=== PATIENT | male | born 1960 ===

== ENCOUNTER 2025-08-13 11:50 | Emergency (ER) | payer OTHER, SELFPAY ==
--- NOTE | ~2025-08-13 | XR_ITS ---
EXAMINATION: XR CHEST CLINICAL INFORMATION: htn, cp COMPARISON: None available. TECHNIQUE: Frontal view of the chest was obtained. FINDINGS: The lungs are hypoexpanded but clear acute process. The heart size and pulmonary vascularity is normal. No gross bony abnormality seen. There are rods within the cervical spine for lower cervical spine fusion. There is bilateral laminectomy in the area of fusion. XR/XR chest 1V IMPRESSION: No acute cardiopulmonary process seen. Electronically signed by: Chance Keller MD 08/13/2025 01:29 PM EDT
--- NOTE | ~2025-08-13 | CT_ITS ---
EXAMINATION: CT HEAD WITHOUT IV CONTRAST HISTORY: htn, headache. TECHNIQUE: Unenhanced helical CT of the head was performed per standard departmental protocol. Coronal and sagittal reformats of the head were also evaluated. One or more of the following techniques was used for dose reduction: Automated exposure control, adjustment of the mA and/or kV according to patient size, use of iterative reconstruction technique. DLP: 740 mGy-cm COMPARISON: There are no prior studies available for comparison. FINDINGS: BRAIN: The brain parenchyma is unremarkable. There is normal martinez/white differentiation. The ventricular system is normal in size and configuration. There is no mass effect or midline shift. No intra- or extra-axial fluid collections are identified. SINUSES: The visualized paranasal sinuses are clear. Under pneumatization of the right mastoid air cells The left mastoid air cells and middle ear cavities are clear. ORBITS: The visualized orbits are unremarkable. BONES/SOFT TISSUES: There is mild soft tissue thickening over the left frontal bone. The calvarium is intact. No suspicious lytic or sclerotic lesions. CT/CT head/brain wo IV con IMPRESSION: No acute intracranial abnormality. Electronically signed by: Madison Dutta MD 08/13/2025 03:35 PM EDT
[2025-08-13 11:59] VITALS: BP 194/112; BP 210/150; PULSE 90; PULSE 98; RESP 18; TEMP 36.6; O2SAT 95; O2SAT 97; BMI 26.3
--- NOTE | 2025-08-13 12:07 | ECG_ITS ---
Test Reason : HYPERTENTION Blood Pressure : */* mmHG Vent. Rate : 93 BPM Atrial Rate : 93 BPM P-R Int : 156 ms QRS Dur : 74 ms QT Int : 342 ms P-R-T Axes : 48 -8 30 degrees QTcB Int : 425 ms Normal sinus rhythm Nonspecific ST abnormality Abnormal ECG No previous ECGs available Referred By: Generic ED Physician Electronically Signed By: LYNNE GREY
--- NOTE | 2025-08-13 12:25 | ED_ITS ---
HPI - General Adult General Chief complaint: General Medical Stated complaint: headache, BP210/150 Time Seen by Provider: 08/13/25 12:00 History of Present Illness ED Provider: Tra Chase MD HPI narrative: [age] male who initial history obtained by myself through our nurse who this EMS. Family he is on patient has a palsy. Reported that the family was concerned about headache Later niece arrived to knows the patient well lives with him she has not know noticed any behavior changes says the prison took the blood pressure was elevated. She herself also unable to communicate clearly with him and does not notice any specific complaints that he may have based on his behavior or communication with him today Related Data Previous Rx's ?Medication ?Instructions ?Recorded amlodipine 10 mg tablet 10 mg PO DAILY #30 tabs 07/17 Allergies Allergy/AdvReac Type Severity Reaction Status Date / Time No Known Allergies Allergy Verified 08/13/25 13:23 [facility] Social History Social History Advance Directives: No Advance Directives Information Provided: Yes Physical Exam ED Exam Exam: GENERAL: Developmental delay, CP limits communication. The patient is awake making eye contact does not appear distressed HEAD/NECK: No visual trauma. EYES: Normal to inspection. No conjunctival erythema. No discharge. ENMT: Hearing grossly normal. External nose normal. RESPIRATORY: Respiratory effort normal. CARDIOVASCULAR: Additional details (Grossly well perfused). SKIN: No jaundice. NEUROLOGICAL: Alert. Moving all extremities x4. Additional details (No gross motor deficits. Normal tone. ). PSYCHIATRIC: Alert. Appearance appropriate for situation. Vital Signs: Vital Signs - 24 hr 08/13/25 11:59 08/13/25 14:47 08/13/25 15:25 Temperature 97.9 F Pulse Rate 98 74 88 Respiratory Rate 18 16 Blood Pressure 194/112 H 170/122 H 193/105 H Pulse Oximetry 97 Oxygen Delivery Method Room Air 08/13/25 17:15 08/13/25 17:25 Temperature 98.3 F 98.3 F Pulse Rate 88 88 Respiratory Rate 18 18 Blood Pressure 165/111 H 165/111 H Pulse Oximetry 96 96 Oxygen Delivery Method Room Air Room Air BMI result Body Mass Index 26.3 Medications Administered Discontinued Medications Generic Name Dose Route Start Last Admin Trade Name Freq PRN Reason Stop Dose Admin Labetalol HCl 20 mg 08/13/25 14:11 08/13/25 14:46 Labetalol Hcl 100 Mg/20 Ml Vial IVPUSH 08/13/25 14:12 20 mg ONCE ONE Administration Labetalol HCl 200 mg 08/13/25 14:11 08/13/25 15:25 Labetalol Hcl 200 Mg Tablet PO 08/13/25 14:12 200 mg ONCE ONE Administration Protocol Medical Decision Making Medical Decision Making MDM Narrative: Medical Decision Making: [age] . no definitive underlying hypertension known. Hypertensive today was unclear whether yet symptoms he has no signs of end-organ damage workup here. Was reported he had 210/50 with the EMS. Labetalol IV and oral here. BP 194/112 later 170/22, later 193/105 No signs of end-organ damage. At baseline behavior bravo per family at bedside. Reassuring ED workup including CT cardiac enzyme electrolytes renal function. Elevated pressures unclear whether this is acute or chronic think it is reasonable to add on additional agent have her take her on-call to the PCP in the next few days to watch this closely Preliminary Favored Differential Diagnosis: Hypertensive emergency, essential hypertension asymptomatic, pain or discomfort among additional considered etiologies Testing Interpreted Independently: ?ECG sinus rhythm no acute ischemic changes normal intervals and axis Radiology or Lab testing Results Reviewed: ?Negative unremarkable CT head Consults: ?See below for details Independent Historians/External Chart Reviews: ?See below for details Social Determinants of Health Impacting MDM/Planning: ?See below for details Lab Data MDM Lab Attestation statement: I reviewed the patient's lab results. 08/13/25 13:02 08/13/25 13:02 Labs: Lab Results 08/13/25 08/13/25 Range/Units 13:02 14:56 WBC 9.4 (4.8-10.8) X10*3/uL RBC 5.71 (4.60-5.80) X10*6/uL Hgb 16.7 (14.0-18.0) g/dl Hct 50.9 (42.0-52.0) % MCV 89.1 (80.0-98.0) fL MCH 29.2 (27.0-33.0) pg MCHC 32.8 (31.0-36.0) g/dl RDW 13.3 (11.0-16.0) % Plt Count 244 (160-400) X10*3/uL MPV 10.8 (9.4-12.4) fL Immature Gran % (Auto) 0.3 (0.0-0.4) % Neut % (Auto) 77.0 H (45-73) % Lymph % (Auto) 14.8 L (20-40) % Banks % (Auto) 5.5 (2-11) % Eos % (Auto) 1.9 (0-4) % Baso % (Auto) 0.5 (0-2) % Lymph # (Auto) 1.4 (1.2-4.9) X10*3/uL Banks # (Auto) 0.5 (0.1-1.2) X10*3/uL Eos # (Auto) 0.2 (0.0-0.4) X10*3/uL Baso # (Auto) 0.1 (0.0-0.2) X10*3/uL Abs Immat Gran (auto) 0.03 (0.00-0.03) X10*3/uL Absolute Neuts (auto) 7.3 (2.0-8.3) x10*3/uL Absolute Nucleated RBC 0.000 (0.0-0.012) X10*3/uL Nucleated RBC % (auto) 0.0 (0.0-0.2) /100WBC PT 10.8 L (10.9-12.4) SEC INR 0.9 (0.9-1.1) Sodium 143 (135-145) mmol/L Potassium 4.2 (3.3-5.1) mmol/L Chloride 105 (96-108) mmol/L Carbon Dioxide 29 (22-29) mmol/L Anion Gap 13 (12-20) BUN 18 H (9-16) mg/dL Creatinine 1.03 (0.5-1.4) mg/dL Estim Creat Clear Calc 69.1 Estimated GFR > 60 Random Glucose 147 H (60-115) mg/dL Calcium 9.4 (8.4-10.2) mg/dL Magnesium 1.7 (1.6-2.6) mg/dL Troponin I High Sens < 2.7 < 2.7 (<3.5-35.0) ng/L Independent Historian Clinical information obtained from an independent historian. History obtained from or confirmed by: Other (Niece healthcare decision-making soccer ball assembler family member she and I had a lengthy discussion) External Record Review External record reviewed: Other [facility] Hospital records from the most recent discharge February 2025 Discharge Plan Discharge Clinical Impression: Hypertension Patient Disposition: Home, Self-Care Instructions: Hypertension (ED) Additional Instructions: _ DISCHARGE DIAGNOSES: Elevated blood pressure possibly chronic versus acute reassuring workup in the emergency department HISTORY OF PRESENTATION: ?High blood pressure EMERGENCY DEPARTMENT COURSE,TESTS, TREATMENTS: While in the ED today the patient had a CT of the head which was normal. The patient had lab work including blood chemistries and blood counts, troponin or cardiac/heart attack enzyme test all negative and reassuring. Patient had EKG that was normal and reassuring. Patient was given blood pressure medicine labetalol which is a beta-daniel intravenously and orally with some improvement. DISCHARGE MEDICATIONS: ?[We have made no changes to your regular medication regimen] patient will need to start blood pressure medicine and be seen by PCP within 2-3 days to rechecked and potentially make medication dosage adjustments Amlodipine If the patient is prescribed other medications he can continue these as previously prescribed FOLLOW-UP: ?Call your primary or general physician soon as possible to discuss your symptoms, your ED visit and to discuss follow up plans Call primary doctor for follow up in the next 24 hours INSTRUCTIONS ?& RETURN PRECAUTIONS: If any symptoms change first call your primary physician, if it is after-hours your primary doctors office should have a provider business liaison officer you can speak with. If the symptoms are severe or very concerning to you then call 911 or return to the ED. [[id number]] Tra Chase MD Emergency Physician [facility] Prescriptions: New amlodipine 10 mg tablet 10 mg PO DAILY Qty: 30 0RF Interventions: ED Discharge Assessment Last Done: 08/13/25 17:25 Discharge Date/Time: 08/13/25 17:28 Print Language: Azeri
--- NOTE | 2025-08-13 12:42 | PC.NURSE ---
Difficulty obtaining IV access. Tra Chase MD coming to bedside to obtain IV access with ultrasound guidance, and labs. Patient attempting to urinate in urinal at this time. Care ongoing by this RN.
[2025-08-13 13:10] LABS: MANUAL DIFF FLAG NO
[2025-08-13 13:13] LABS: Hematocrit 50.9 % (42.0-52.0); Hemoglobin 16.7 g/dl (14.0-18.0); Imm Gran Abs Auto 0.03 X10*3/uL (0.00-0.03); Imm Gran Pct Auto 0.3 % (0.0-0.4); Lymphocytes Absolute Auto 1.4 X10*3/uL (1.2-4.9); Mean Corpuscular HGB Conc 32.8 g/dl (31.0-36.0); Mean Corpuscular Hemoglobin 29.2 pg (27.0-33.0); Mean Corpuscular Volume 89.1 fL (80.0-98.0); NRBC Abs Auto 0.000 X10*3/uL (0.0-0.012); NRBC Pct Auto 0.0 /100WBC (0.0-0.2); Platelet Count 244 X10*3/uL (160-400); Red Blood Count 5.71 X10*6/uL (4.60-5.80); White Blood Count 9.4 X10*3/uL (4.8-10.8)
[2025-08-13 13:23] LABS: INTERNATIONAL NORM RATIO 0.9 (0.9-1.1); Prothrombin Time 10.8 SEC (10.9-12.4)
[2025-08-13 13:30] LABS: Anion Gap 13 (12-20); Blood Urea Nitrogen 18 mg/dL (9-16); Calcium 9.4 mg/dL (8.4-10.2); Carbon Dioxide 29 mmol/L (22-29); Chloride 105 mmol/L (96-108); Creatinine Clr Calc Pharmacy 69.1; Estimated Glomerular Filt Rate > 60; Magnesium 1.7 mg/dL (1.6-2.6); Potassium 4.2 mmol/L (3.3-5.1); Sodium 143 mmol/L (135-145)
[2025-08-13 13:37] LABS: Troponin-I High Sensitivity < 2.7 ng/L (<3.5-35.0)
[2025-08-13 14:47] VITALS: BP 170/122; PULSE 74; RESP 16
[2025-08-13 15:25] VITALS: BP 193/105; PULSE 88
[2025-08-13 16:17] LABS: Troponin-I High Sensitivity < 2.7 ng/L (<3.5-35.0)
[2025-08-13 17:15] VITALS: BP 165/111; PULSE 88; RESP 18; TEMP 36.8; O2SAT 96
--- NOTE | 2025-08-13 17:24 | PC.NURSE ---
Provider aware of BP, BP to previous ones taken, okay to DC patient.
[2025-08-13 17:25] VITALS: BP 165/111; PULSE 88; RESP 18; TEMP 36.8; O2SAT 96
--- OUTSIDE RECORDS SUMMARY | 2025-08-13 17:40 | XMS_ITS | Data Portability ---
Author Organization [facility], [facility] Address [address] [place] [address] Care Team Providers Care Nut Orchardist Name Role Phone [facility] OTHER [facility] OTHER GABY DORSEY Primary Care Provider Assessment Encounter Date Assessment Date Assessment LastModified by Organization Details LastModified Time 09/21/2023 09/21/2023 I provided real -time medical direction via phone for this encounter, and was available for additional phone based assistance as needed. I have reviewed and agree with the Assessment and Plan as documented by the Ground Wood Supervisor. Patient/ niece and sister given the opportunity to ask questions. [email or web address] Not available 09/21/2023 16:51:59 05/29/2024 05/29/2024 64 yo M non-verbal, mostly bed bound patient meeting SIRS criteria (febrile to T 102, tachycardic w/HR 100s) and lower abd ttp on medic exam. Per family, pt has had UTIs in the past, last > 1 yr ago. No other systemic s/sxs. Urine dip ++LE and ketone, neg nitrites and blood. Rapid COVID and flu swabs negative. Will send for UCX and treat empirically for UTI w/bactrim. Pt able to take PO fluids and has very poor IV access, so will defer IVFs. If patient continues to be febrile and or has worsening abd pain with poor PO, advised to go to ED for imaging and further workup. [email or web address] Not available 05/29/2024 21:12:17 09/01/2024 09/01/2024 As noted, we were called to see this patient regarding concerns of wheezing and missing equipment. Evaluation in the field was performed by my telephone interceptor operator colleague, as noted above, I provided real-time direction and supervision for this visit. The evaluation revealed same. Impression: 64yo/m with pmhx of being largely nonverbal and bedbound at baseline, HTN, DM, COPD on 02 at night who is referred for wheezing but also missing piece of his 02 connector. Pt is 64yo/m and cared for at home by family, has hx of recurrent UTIs, covid infection in Sep. Family states for past 1 week they have noted wheezing from his lungs. No associated fevers/chills, nausea/vomitin g, chest pain or dyspnea. No change in mental status or activity level. They have been giving albuterol via nebulizer every 4-6 hours with improvement. However symptoms persist at this time. No associated fevers or systemic symptoms of illness. No productive coughing at this time. No LE edema. For medic in home pt is awake, alert, in no distress. Breathing comfortably without respiratory distress with normal 02 sats, but has diffuse expiratory wheezing throughout. They deny other ROS. Plan: Discussed at length with medic in home, pt is awake, and alert and breathing comfortably without hypoxia but with persistent wheezing. Given hx of COPD/asthma, believe it's reasonable to treat with duoneb and prednisone for 5 days. Covid and flu are negative today, family feel comfortable remaining at home and continuing to observe his symptoms to monitor for any worsening. Instructed with any acute worsening or change in symptoms he would require ED evaluation which they understand. Otherwise will recommend followup with PMD in 24-48 hours for recheck and consider CXR if no improvement. Of note, pt is also requesting assistance with a missing piece to his humidifier on 02 (please see pictures in notes) and requesting assistance replacing as they are having delays from their insurance company, will flag CRC nurses for assistance. I have a lower clinical suspicion at this time for an occult emergency medical condition such as ACS, PE, aortic dissection, AAA, ARDS, sepsis. Primary care, consider CXR if no improvement Disposition: We discussed the diagnostic uncertainty of home visits and the risk associated with this. In this case, the patient and I felt this to be an acceptable and reasonable amount of risk given the benefit of avoiding an ED visit. We discussed the need to seek care urgently/emerg ently in the setting of any new or worsening serious symptoms [email or web address] Not available 09/01/2024 11:37:33 03/06/2025 03/06/2025 service called for nausea, fever, abd pain found 64 va with hx COPD HTN family reports acute onset 3h prior abd pain, increased WOB, chest pain, burning on urination family denies recent cough, nasal congestion pt unreliable historian VS T103.2 119 180/100 97%RA reported diffuse wheezing abd tenderness #Fever concern for severe infection need for IV abx, increased monitoring refer ED [email or web address] Not available 03/06/2025 18:28:14 Plan of Treatment Reminders Order Date Submit Date Provider Last Modified By Organization Details Last Modified Time Details Appointments None recorded. Lab rapid SARS CoV 2 Ag, QL IA, respiratory specimen [email or web address] [facility] - [address], [id number] 4 11:32:01 rapid flu (A+B) [email or web address] [facility], [address] [place] [address], [id number] 4 11:32:01 culture, urine 2023 024 HANNAH [facility] (Centralized Electronic Ordering - All Locations), Patient Can Go To The Location Of Their Choice, [id number] 4 12:06:48 urinalysis, dipstick 2023 024 [email or web address] 7 [facility], [address] [place] [address], [address] 4 18:08:26 rapid SARS CoV 2 Ag, QL IA, respiratory specimen 2023 024 [email or web address] 7 [facility], [address] [place] [address], [id number] 4 18:08:27 rapid flu (A+B) 2023 024 [email or web address] 7 [facility], [address] [place] [address], [id number] 4 18:08:28 glucose, fingerstick , blood [email or web address] [facility] - [address], [address] 3 16:43:24 rapid SARS CoV 2 Ag, QL IA, respiratory specimen 2022 023 [email or web address] 0 [facility] - [facility], [address] [place] [address], [address] 3 16:17:19 rapid flu (A+B) 2022 023 [email or web address] 0 [facility] - [facility], [address] [place] [address], [id number] 3 16:17:20 urinalysis, dipstick 2022 023 [email or web address] 0 [facility] - [facility], [address] [place] [address], [address] 3 16:17:21 Referral None recorded. Procedures None recorded. Surgeries None recorded. Imaging None recorded. Medication Orders ipratropium 0.5 mg-albutero l 3 mg (2.5 mg base)/3 mL nebulizatio n soln 2023 024 [email or web address] 84 [facility], [address] [place], [address], 4 11:28:40 prednisone 20 mg tablet 2023 024 [email or web address] 84 [employer] [facility], [address] [place], [address], 4 11:28:39 prednisone 20 mg tablet 2023 024 [place], [address] [place] [address], [id number], 4 11:28:53 ipratropium 0.5 mg-albutero l 3 mg (2.5 mg base)/3 mL nebulizatio n soln 2023 024 [facility], [address] [place] [address], [id number], 4 11:31:36 albuterol sulfate 2.5 mg/3 mL (0.083 %) solution for nebulizatio n 2023 024 [email or web address] 84 [facility], [address] [place], [address], 4 11:31:20 prednisone 50 mg tablet 2023 024 HAN[facility], [address] [place], [address], 4 11:33:32 prednisone 20 mg tablet 2023 024 [email or web address] 84 [facility], [address] [place], [address], 4 11:31:20 prednisone 10 mg tablet 2023 024 HANNAH [facility], [address] [place], [address], 4 11:33:26 prednisone 20 mg tablet 2023 024 [facility]NA[facility], [address] [place], [address], 4 11:33:29 sulfamethox azole 800 mg-trimetho prim 160 mg tablet 2023 024 [email or web address] 7 Not available 4 18:08:23 Bactrim DS 800 mg-160 mg tablet 2023 024 HANNAHEDER [facility], [address] [place], [address], 4 18:09:07 Patient TargetsNo targets recorded. Patient InstructionsNo instructions recorded. Reason for Referral None Reported. Results Created Date Observation Date Name Description Value Unit Range Abnormal Flag Note LastModifiedBy Organization Detail LastModifiedTime 09/21/20 23 09/21/2023 gluco se, finge rstic k, blood Blood Glucose: mg/dl 99 Not Available [facility] - [facility] [address] [place] [address], [address] 09/21/2023 16:43:10 09/21/20 23 09/21/2023 rapid SARS CoV 2 Ag, QL IA, respi rator y speci men rapid SARS CoV 2 Ag, QL IA, respiratory specimen positi ve Not Available [facility] [address] [place] [address], [address] 09/21/2023 16:15:35 09/21/20 23 09/21/2023 rapid flu (A+B) Flu negati ve Not Available [facility] [address] [place] [address], [address] 09/21/2023 16:15:36 09/21/20 23 09/21/2023 urina lysis , dipst ick Leukocytes neg Not Available [facility] [address] [place] [address], [address] 09/21/2023 16:15:50 09/21/20 23 09/21/2023 urina lysis , dipst ick Nitrite negati ve Not Available [facility] [address] [place] [address], [address] 09/21/2023 16:15:50 09/21/20 23 09/21/2023 urina lysis , dipst ick Urobilinogen neg Not Available [facility] [address] [place] [address], [address] 09/21/2023 16:15:50 09/21/20 23 09/21/2023 urina lysis , dipst ick Protein neg Not Available [facility] - [facility] [address], [address] 09/21/2023 16:15:50 09/21/20 23 09/21/2023 urina lysis , dipst ick pH 5 Not Available [facility] - [facility] [address], [address] 09/21/2023 16:15:50 09/21/20 23 09/21/2023 urina lysis , dipst ick Blood neg Not Available [facility] - [facility] [address], [address] 09/21/2023 16:15:50 09/21/20 23 09/21/2023 urina lysis , dipst ick Specific [place] 1.015 Not Available [facility] - [facility] [address] [place] [address], [address] 09/21/2023 16:15:50 09/21/20 23 09/21/2023 urina lysis , dipst ick Ketone neg Not Available [facility] - [facility] [address] [place] [address], [address] 09/21/2023 16:15:50 09/21/20 23 09/21/2023 urina lysis , dipst ick Bilirubin neg Not Available [facility] - [facility] [address] [place] [address], [address] 09/21/2023 16:15:50 09/21/20 23 09/21/2023 urina lysis , dipst ick Glucose neg Not Available [facility] - [facility] [address] [place] [address], [address] 09/21/2023 16:15:50 09/21/20 23 09/21/2023 urina lysis , dipst ick Appearance mostly clear w/ sl sedime nt Not Available [facility] [address] [place] [address], [address] 09/21/2023 16:15:50 09/21/20 23 09/21/2023 urina lysis , dipst ick Color pale yellow Not Available [facility] [address] [place] [address], [address] 09/21/2023 16:15:50 05/29/20 24 06/01/2024 URINE CULTU RE,CO MPREH ENSIV E urine culture,comp rehensive Final report abnormal Not Available [facility] ([facility]) [address] [place], [address], 06/01/2024 14:05:37 05/29/20 24 06/01/2024 URINE CULTU RE,CO MPREH ENSIV E result 1 Klebsi anaya aeroge thania abnormal Great er than 100,0 00 colon y formi ng units per mL Not Available [facility] ([facility]) [address] [facility], [place], [address], 06/01/2024 14:05:37 05/29/20 24 06/01/2024 URINE CULTU RE,CO MPREH ENSIV E antimicrobia l susceptibili ty Commen t S = Susce ptibl e; I = Inter media te; R = Resis tant P = Posit loree; N = Negat loree MICS are expre ssed in micro grams per mL Antib iotic RSLT# 1 RSLT# 2 RSLT# 3 RSLT# 4 Amoxi cilli n/Cla vulan ic Acid R Cefaz kristi R Cefep evi S Ceftr iaxon e S Cefur oxime I Cipro floxa dov S Ertap enem S Genta micin S Imipe nem S Levof loxac in S Nitro furan toin I Tetra cycli ne S Tobra mycin S Trime thopr im/Srivastava lfa S Not Available [facility] ([facility]) [address] [facility], [place], [address], 06/01/2024 14:05:37 05/29/20 24 05/29/2024 rapid flu (A+B) Flu negati ve Not Available [facility] [address] [place] [address], [address] 05/29/2024 18:07:55 05/29/20 24 05/29/2024 rapid SARS CoV 2 Ag, QL IA, respi rator y speci men rapid SARS CoV 2 Ag, QL IA, respiratory specimen negati ve Not Available [facility] [address] [place] [address], [address] 05/29/2024 18:03:35 05/29/20 24 05/29/2024 urina lysis , dipst ick Leukocytes ++ Not Available [facility] [address] [place] [address], [address] 05/29/2024 18:00:52 05/29/20 24 05/29/2024 urina lysis , dipst ick Nitrite negati ve Not Available [facility] [address] [place] [address], [address] 05/29/2024 18:00:52 05/29/20 24 05/29/2024 urina lysis , dipst ick Ketone ++ Not Available [facility] [address] [place] [address], [address] 05/29/2024 18:00:52 11/19/19 25 11/22/2024 URINE CULTU RE,CO MPREH ENSIV E urine culture,comp rehensive Final report abnormal Not Available [facility] ([facility]) [address] [facility], [place], [address], 11/22/2024 10:06:31 11/19/19 25 11/22/2024 URINE CULTU RE,CO MPREH ENSIV E result 1 COMMEN T abnormal Staph yloco ccus epide rmidi s Based on resis tance to oxaci llin this isola te would be resis tant to all curre ntly avail able beta- lacta m antim icrob ial agent s, with the excep tion of the newer cepha lospo rins with anti- MRSA activ ity, such as Cefta rolin e 10,00 0-25, 000 colon y formi ng units per mL Not Available [facility] ([facility]) [address] [facility], [place], [address], 11/22/2024 10:06:31 11/19/19 25 11/22/2024 URINE CULTU RE,CO MPREH ENSIV E antimicrobia l susceptibili ty Commen t S = Susce ptibl e; I = Inter media te; R = Resis tant P = Posit loree; N = Negat loree MICS are expre ssed in micro grams per mL Antib iotic RSLT# 1 RSLT# 2 RSLT# 3 RSLT# 4 Cipro floxa dov S Genta micin S Levof loxac in S Linez olid S Moxif loxac in S Nitro furan toin S Oxaci llin R Penic illin R Rifam pin S Tetra cycli ne S Trime thopr im/Srivastava lfa R Vanco mycin S Not Available [facility] ([facility]) [address] [facility], [place], [address], 11/22/2024 10:06:31 Result Notes None recorded. Medical Equipment None Reported. Allergies No known drug allergies Medications Name Sig Start Date Stop Date Status Note LastModified by Organization Details LastModified Time delivery fee active Not Available Not Available Not Available quetiapine 25 mg tablet active Not Available Not Available Not Available prednisone 10 mg tablet Take 5 tablets every day by oral route for 4 days. 2023 active Not Available Not Available Not Avai lable ipratropium 0.5 mg-albuterol 3 mg (2.5 mg base)/3 mL nebulization soln Inhale 3 mL 4 times a day by nebulizatio n route. active Not Available Not Available No t Available albuterol sulfate 2.5 mg/3 mL (0.083 %) solution for nebulization active Not Available Not Available Not Available lisinopril 20 mg-hydrochlo rothiazide 12.5 mg tablet active Not Available Not Available Not Available metoprolol succinate ER 50 mg tablet,exten ded release 24 hr active Not Available Not Available Not Available senna 8.6 mg tablet active Not Available Not Available Not Available meloxicam 15 mg tablet active Not Available Not Available No t Available lisinopril 20 mg tablet active Not Available Not Available Not Available prednisone 20 mg tablet Take 3 tab orally once daily for 2 days then 2 tab once daily for 2 days then 1 tab once daily for 2 days active Not Available Not Available No t Available hydroxyzine HCl 50 mg tablet active Not Available Not Available Not Available amlodipine 5 mg tablet active Not Available Not Available No t Available sulfamethoxa zole 800 mg-trimethop rim 160 mg tablet Take 1 tablet every 12 hours by oral route for 7 days. active Not Available Not Available Not Available aspirin 81 mg tablet,delay ed release active Not Available Not Available N ot Available simvastatin 40 mg tablet active Not Available Not Available Not Available tamsulosin 0.4 mg capsule active Not Available Not Available Not Available pantoprazole 40 mg tablet,delay ed release active Not Available Not Available N ot Available lisinopril 10 mg tablet active Not Available Not Available Not Available prednisone 50 mg tablet Take 1 tablet every day by oral route in the morning for 5 days. 2023 active Not Available Not Available Not Avai lable Ear Drops (carbamide peroxide) 6.5 % active Not Available Not Available Not Available hydroxyzine HCl 25 mg tablet active Not Available Not Available Not Available furosemide 20 mg tablet active Not Available Not Available Not Available metformin ER 500 mg tablet,exten ded release 24 hr active Not Available Not Available Not Available loratadine 10 mg tablet active Not Available Not Available Not Available amoxicillin 875 mg-potassium clavulanate 125 mg tablet ALLIE 1 TABLETA POR LA BOCA CADA 12 HORAS POR 4 SANCHEZ active Not Available Not Available No t Available nitrofuranto in monohydrate/ macrocrystal s 100 mg capsule active Not Available Not Available Not Available quetiapine 50 mg tablet active Not Available Not Available Not Available Stimulant Laxative Plus 8.6 mg-50 mg tablet active Not Available Not Available Not Available Vitals Date Recorded Respiratory rate Heart rate Oxygen saturation Oxygen saturation in Arterial blood by Pulse oximetry Body weight Body temperature Systolic And Diastolic Provider Name and Address Organization Details Last Updated DateTime 4 18 /min 86 /min 96 % 96 % 06603.8 g 97.6 [degF] 136/76 mm[Hg] Not Available [employer] 4 18:46:02 Date Recorded Body temperature Oxygen saturation Oxygen saturation in Arterial blood by Pulse oximetry Respiratory rate Heart rate Systolic And Diastolic Provider Name and Address Organization Details Last Updated DateTime 5 103.2 [degF] 97 % 97 % 20 /min 119 /min 180/100 mm[Hg] Not Available [employer] 5 17:26:53 Date Recorded Oxygen saturation Oxygen saturation in Arterial blood by Pulse oximetry Body weight Heart rate Respiratory rate Body temperature Systolic And Diastolic Provider Name and Address Organization Details Last Updated DateTime 4 98 % 98 % 97754.8 g 101 /min 16 /min 102.1 [degF] 124/80 mm[Hg] Not Available [employer] 4 17:54:39 Date Recorded Oxygen saturation Oxygen saturation in Arterial blood by Pulse oximetry Heart rate Body temperature Respiratory rate Body height Body weight Systolic And Diastolic Provider Name and Address Organization Details Last Updated DateTime 4 97 % 97 % 76 /min 97.8 [degF] 20 /min 152.4 cm 24116.8 g 150/90 mm[Hg] Not Available [employer] 4 11:22:59 Date Recorded Body weight Body temperature Respiratory rate Heart rate Oxygen saturation Oxygen saturation in Arterial blood by Pulse oximetry Body height Systolic And Diastolic Provider Name and Address Organization Details Last Updated DateTime 3 28392.7 6 g 99.3 [degF] 16 /min 81 /min 98 % 98 % 154.94 cm 142/79 mm[Hg] Not Available [employer] - [employer] 3 16:01:19 Social History None recorded. Functional Status None recorded. Mental Status None recorded. Family History Nothing Reported. Medical History No medical history recorded. Past Encounters Encounter ID Performer Location Encounter Start Date Encounter Closed Date Diagnosis/Indication Diagnosis SNOMED-CT Code Diagnosis ICD10 Code Diagnosis IMO Codes Diagnosis Note [id number] [facility] - [address] [address] 09/20/2022 16:14:11 09/22/2022 11:22:04 Tachycardia 1087067 R00.0 Per family has hx AFib but no on anticoagul ation, VNA found pt to be tachycardi c to 120s. During telephone interceptor operator visit HR 104, EKG appears c/w sinus tachycardi a. DDx includes physiologi c vs med side effect. No infectious symptoms, normal PO intake and no PE signs of dehydratio n (cannot do orthostati cs though is on diuretics) . Denies si/sx DVT/PE, but cannot definitely rule out. Given asymptomat ic recommende d short interval follow up w/ PCP to consider Holter, TSH, and TTE and discussion re: anticoagul ation. Red flag symptoms reviewed, pt instructed to call 911 if condition worsens or new symptoms develop, pt expressed understand ing. I have reviewed and agree with the assessment and plan as documented by the telephone interceptor operator. I provided real time medical direction for this encounter and was immediatel y available to provide additional phone based assistance as needed. [id number] [facility] - [address] [address] 08/21/2023 17:02:26 08/21/2023 22:36:20 Viral upper respiratory tract infection [id number] J06.9 This 63-year-ol d male has had typical URI symptoms for several weeks with no fever or systemic symptoms. He also has mentioned a pulsating feeling in his abdomen without pain. He previously had some type of torn vein in his abdomen. I recommende d symptomati c treatment for his URI. If he develops significan t abdominal pain, he should go to the ER. The patient's caregivers agreed with this plan. [id number] Omayra Styles MD [address] [address] 09/21/2023 16:01:07 09/24/2023 17:04:01 COVID-19 [id number] U07.1 Abdominal pain 04671348 R10.9 With scrotal pain-no evidence of UTI-cannot rule out testicular torsion versus early Arjun gangrene also concern for black stool could the patient be GI bleeding versus intra-abdo reed infection given the pain and tenderness . I spoke with the family at length and explained that the patient could have a potentiall y life-threa tening infection/ possible internal bleeding and need for extensive workup beyond the scope of our service. I advised the need for immediate transfer to the ER. Sister and niece verbalized understand ing and report was called to [facility] ER Xpect line while medic called for EMS transport [id number] Taryn Hartman MD Main - [address] [address] 02/13/2024 18:46:00 02/14/2024 11:29:02 Cough 24019530 R05.9 63 year old male being evaluated for chest congestion /cough for the last few weeks. History primarily obtained from family, who report patient has been hospitaliz ed for pneumonia in the past, and has been with a productive cough, without fever/chil ls currently. Patient is at his baseline mental status, eating and drinking well. Exam notable for normal vital signs, bibasilar crackles at lung bases, no peripheral edema. Presentati on consistent with possible LRTI, given patient is clinically stable, patient safe to remain at home, will recommend calling PCP to obtain a CXR and do additional work up if indicated. I have reviewed and agree with the assessment and plan as documented by the telephone interceptor operator. I provided real-time medical direction for this encounter and was immediatel y available to provide additional phone-base d assistance as needed. We discussed the diagnostic uncertaint y of home visits and associated risks. We discussed the need to seek care urgently/e mergently in the setting of any new or worsening symptoms. [id number] FRANKO MONTOYA [facility] [address] [place] [phone] 05/29/2024 17:54:32 05/30/2024 13:07:31 Urinary symptoms 654780604 R39.9 Systemic i nflammatory response syndrome [id number] R65.10 [id number] Jian Dumont MD [facility] [address] [place] [phone] 09/01/2024 11:22:56 09/01/2024 17:05:50 Asthma [id number] J45.909 [id number] Mona Jennings MD [facility] - [facility] [address] [place] [phone] 03/06/2025 17:26:51 03/07/2025 14:11:35 Fever 431083383 R50.9 [id number] Health Concerns Section Related Observation LastModified by Organization Detai ls LastModified Time None Recorded Concern Status LastModified by Organization Details LastModified Time None Recorded Advance Directives Directive None Recorded Payers Insurance Date Sequence Insurance Name Policy Number Policy Chávez Covered Member ID Chávez Member ID Guarantor Name 02/14/2024 1 [facility] - DOS PRIOR TO 2023 - DUAL ELIGIBLE (MEDICARE REPLACEMENT/AD VANTAGE - HMO) Destin Enriquez [id number] Destin Enriquez 03/06/2025 1 [facility] - DOS ON OR AFTER 2023 - DUAL ELIGIBLE - ASSISTED OPTIONS AND ONE CARE (MEDICARE REPLACEMENT/AD VANTAGE - HMO) Destin Enriquez [id number] Destin Enriquez Notes Date Note Type Note Provider Name and Address Organization Details Recorded Time 3 text/html ROS as noted in the HPI HPI: Call transferred from [facility], member's sister Josephine, reports member has fever, pain and redness in testicles, and swollen penis. T. 102, member c/o dysuria and malodorous urine. Onset of sx's yesterday. Member took Tylenol earlier today with effect. Member is non-verbal, and has communicated pain to his sister. Suspects UTI. PMH: Alzheimer's, anxiety, agitation, TIA, mental retardation, dysphagia, hypoxic brain injury. ........................ ........................ ........................ ........................ ........................ ..................... CRC Nursing Assessment: Comments: No further information needed to process visit- N Loco RNSEGMD: Patient also has a cough. Patient is Mongolian-speaking but is also dysarthric/expressive aphasia communicates a lot with family with hand signals-minimal verbal capability. Sister and niece who are caregivers present for the exam. Temp was 102 earlier- denied antipyretic since yesterday. The patient had been constipated so they gave him some senna and they report he had black tarry stools today. No nausea vomiting or diarrhea. ........................ ........................ ........................ ........................ ........................ ..................... Ground Wood Supervisor Note From Gilberto Blunt: MIH2 arrives to find 63 year old male supine in bed. Pt is baseline non-verbal due to hx of anoxic brain injury. Through translation from Niece who acts as his SPAR MACHINE OPERATOR HELPER, pt is reporting abdominal pain and pain when urinating. Niece also reports pt has swollen testicles and penis since yesterday. Vitals as noted. Covid positive, flu negative. Straight catheterization performed, urinalysis uploaded. Assessment of abdomen reveals tenderness in RUQ and RLQ as well as guarding globally. Patient reports testicular tenderness. BGL 99. [facility] consulted. Pt is advised to be transferred to ER for imaging. 911 contacted. Patient transferred to [facility] ER by [facility]. MIH3 clear. ........................ ........................ ........................ ........................ ........................ ..................... Disposition: Fulfilled Omayra Styles MD [address] [facility],[address], [place], [address], [employer] 09/21/2023 17:13:57 4 text/html HPI: The NURSE Rosemary from [facility] , called in for chest congestion. Per his sister, he snores on his chest, secondary to asthma. The member received an updraft, with no change. The member has a cough, but intermittently. The member is nonverbal at baseline, with no color and no fever. The member does have seasonal allergies. Member doses not have home o2. Member has had symptoms for 2 weeks .Does member live in a nursing home ? / RN unsure ........................ ........................ ........................ ........................ ........................ ..................... CRC Nurse Triage Notes (Rebecca Scott): Comments: Transcribed ........................ ........................ ........................ ........................ ........................ ..................... Ground Wood Supervisor Note From Onofre Valadez: Pt family concerned about fluid in lungs due to coughing. Pt on o2 and night only. Pt non verbal. Unable to express symptoms. Pt does not appear to be in distress of any kind. Pt baseline vitals assessed. Lungs have fluid like sounds in the lower verduzco ?? Afebrile. No coughing while on scene. [facility] contacted and advised to follow up with pcp for X-rays. Daughter sts she will call first thing in the morning. Education on signs indicating the ER. ........................ ........................ ........................ ........................ ........................ ..................... Disposition: Fulfilled Taryn Hartman MD [address] [place] [address],[address], [place], [address], [email or web address] 02/13/2024 21:29:48 4 text/html HPI: Member's niece called [facility], states member c/o pain in pelvic area and back, has urinary incontinence and fever. Onset of sx's 3-4 days ago. Suspected UTI. She is requesting home visit for evaluation. PMH includes but not limited to Alzheimer's disease, CKD, DM II, TIA, mental retardation, W/C dependent, dysphagia, non-verbal. ........................ ........................ ........................ ........................ ........................ ..................... CRC Nurse Triage Notes (Gustavo Sanders): Chief Complaints: UTI/Pyelonephritis PMH: Diabetes, COPD/Asthma, Severe Persistent Mental Illness (SPMI), Hypertension Comments: HPI reviewed by this RN, no further information needed to process visit -Ramesh Sanders RN Ground Wood Supervisor Organization Information for Onofre Valadez [employer] Legal Name: [facility] Address: [address] [place] [address], Industrial Design Intern: Darrius Rockwell MD [facility] No.: [id number] Ground Wood Supervisor POC Test Results from Onofre Valadez Urine Dipstick (17:49:49) Urine leukocytes: 500+++ GAIL Urine nitrites: NR Urine urobilinogen: NR Urine protein: 300(3.0)+++ PRO Urine pH: 5 pH Urine blood: NR Urine specific gravity: 1.020 SG Urine ketones: 15(1.5)+ KET Urine bilirubin: NR Urine glucose: NR ........................ ........................ ........................ ........................ ........................ ..................... Ground Wood Supervisor Note From Onofre Valadez: Pt non verbal , pt niece concerned for UTI due to fever and pt expressing abdominal pain. Family denies NVD. Pt eating and drinking well. Baseline vitals asssessed. Straight cath for urine sample , urine dip unremarkable, urine clear and yellow in color. Pt febrile. Lungs clear. Covid and flu swab negative. [facility] contacted and 800mg/160mg bactrim given po. Family gave pt Tylenol 1g. Education provided on signs indicating the ER. Family advised if still has fever in 24-48 hours to go into ER for imaging. Advised to follow up with pcp. RX for bactrim called for 7 day course. Culture to lab abdullahi. ........................ ........................ ........................ ........................ ........................ ..................... Disposition: Fulfilled FRANKO MONTOYA MD [address] [facility],[address], [place], [address], [employer] 05/29/2024 21:12:27 4 text/html ROS as noted in the HPI HPI: Niece states pt has had a cough for about a week. Increased use of nebulizer. Chest pain while cough. Mild difficulty breathing. Fatigue. ........................ ........................ ........................ ........................ ........................ ..................... CRC Nurse Triage Notes (Clementina Haider): Reason For Request: Cough, SOB, URI symptoms Chief Complaints: Cough, Breathing problems, Chest pain PMH: COPD/Asthma, Severe Persistent Mental Illness (SPMI), Hypertension Comments: PMH: non-verbal, mostly bed bound patient, [facility]'sWill [facility] referral for URI workup ,asthma, COPD exacr/o infectionYuan DENISE Ground Wood Supervisor Organization Information for [employer] Legal Name: [employer]. Address: [address] [place] [address], Industrial Design Intern: Amando Wilson MD [facility] No.: [id number] Ground Wood Supervisor POC Test Results from [employer] Rapid COVID antigen (11:26:52) COVID: - Attachments uploaded as part of this test result can be found under Documents section. Rapid influenza antigen (11:26:54) Flu: - Attachments uploaded as part of this test result can be found under Documents section. ........................ ........................ ........................ ........................ ........................ ..................... Ground Wood Supervisor Note From [employer]ric[employer] Tovar: Zoie called for her 64yo M uncle who's been showing SOB and phlegm production for about a week now. She adds that at night he keeps them up with his coughing and it sounds like he can't breathe. Zoie states that for about a week he hasn't been using his O2 concentrator because there is tubing and a piece missing. There is short tubing from the concentrator to humidifier chamber, and a piece that screws from the humidifier chamber to the NC that is missing. [facility] attempted to take a picture of this for the [facility] to pass along to pt's care team. Additionally, [facility] checked for the piece unable to find one in our supplies. Niece is fighting with the insurance company to get him one.Family denies fever as off late. Pt has been eating and drinking well with normal BM and urination. Family seems to do an outstanding job taking care of him, home his clear, and pt is clean. Assessment:64 yo M pt with hx of DM2, COPD, and Cerebral Palsy (CP). Pt is bedbound and being born in the 60s in [place], family reports he was never fully diagnosed with CP until coming here. Doctors here unofficially diagnosed the pt with CP. Pt presents with labored breathing and audible wheezing even without auscultating lung sounds. Lungs sounds were wheezing throughout and noted the pt to have a cough. No production while MIH on scene. No BLE edema noted. Pt seemed to be slouched in the bed, MIH assisted the pt to more of a sitting position in bed. This with the treatment below, seemed to ease the pt's breathing. Pt is non-verbal at baseline, but interacts with his environment well. POC Tests:Covid - NEGFlu A/B - NEGAllergies:Sister and niece both state the pt has none.Pharmacy:[facility]. Consult:Duo-Neb - Administered. Post administration lungs cleared and pt did not appear in distress. Breathing eased.40mg Prednisone PO - Administered with yogurt for ease of swallowing. O2 concentrator can be used without humidifier for the time being. Rx called into pt's pharmacy.Discussed red flags with family and when to call 911/EMS. Also, if s/s do not improve by Sunday to call PCP for a chest X-ray to r/o pneumonia. ........................ ........................ ........................ ........................ ........................ ..................... [facility] Consulted: Jian Dumont ........................ ........................ ........................ ........................ ........................ ..................... Disposition: Fulfilled Jian Dumont MD [address] [place] [address],[address], [place], [phone], [email or web address] 09/01/2024 12:17:40 5 text/html CRC Nurse Triage Notes (Gustavo Sanders): Reason For Request: fever/sob/weak Chief Complaints: Fever, Weakness PMH: COPD/Asthma, Severe Persistent Mental Illness (SPMI), Hypertension PMH Reviewed at 03/06/2025 - 16:19 Allergies Reviewed at 03/06/2025 - 16:19 Comments: Additional PMH: Cerebral Palsy 64 y.o male complains of Fever, Weakness Patient's niece calling reporting complaining of nausea, fever, and generalized weakness. Niece reports pt is having difficulty standing due to the weakness. Niece reports symptoms first started today after patient got home from Day Program. Niece reports patient's fever is 102F- niece gave patient 500mg of Tylenol. Niece reports patient seems to be nauseous, patient unable to eat the food she cooked for him. Patient is non verbal at baseline per niece. Niece reports pt is now complaining of chest pain as well. Patient also reportedly with a cough today. Niece reports patient is unreliable and says yes to everything, niece is unable to answer any further triage questions. I provided information on the mobile health provider response time and advised the patient and/or caregiver to monitor reported signs and symptoms. I discussed the warning signs of when to seek emergency care -Ramesh Sanders RN ........................ ........................ ........................ ........................ ........................ ..................... Ground Wood Supervisor Note From Philipp Schulte: [facility] dispatched to the address listed above for the report of a male alliance party with fever/weakness. Arrival on scene, patient was found in bedroom with family, lying semi fowlers in bed, conscious and alert but non verbal at baseline, patent airway on NC at 2 L/m, breathing slightly labored, skin hot, pink, dry. +/= Chest rise. +SOB, +CP, +Nausea, +Trauma, +Fever. Lung sounds reveal diffuse wheezing on expiration. Abdomen soft, tender on palpation in all quadrants. Patient non verbal at baseline due to cerebral palsy. Patient answered questions primarily by nodding his head. Hot Strip Mill Inspector reports that the patient came home from adult daycare about 3 hours ago, advised that noticed patient has complaints of nausea, weakness, abdominal pain, fever, chest pain, and shortness of breath. Hot Strip Mill Inspector advised fever of 102 about an hour ago and gave 500mg Tylenol without improvement. [employer] Strip [employer] Inspector also notes history of UTI with accompanied symptoms of burning sensation upon urination and foul smelling urine. [employer] Strip Mill Inspector reports that the patient came home from daycare with a bruise of right shoulder but unsure if he fell or not. Hot Strip Mill Inspector reports reduced food/fluid intake but has been medication compliant. Patient vital signs obtained revealing patient febrile, hypertension, and tachycardic. [facility] consulted, recommended that patient go to the hospital for evaluation and monitoring due to his condition and complaints. 911 called for patient with [facility] arrival on scene shortly after. 324mg Aspirin PO administered for chest pain, six patient rights verified. Patient reports given to [facility] and care was transferred. EMS assisted as needed until transport initiated. SC12 Clear. ........................ ........................ ........................ ........................ ........................ ..................... [facility] Consulted: Mona Jennings ........................ ........................ ........................ ........................ ........................ ..................... Disposition: Fulfilled Mona Jennings MD [address] [facility],[address], [place], [phone], [facility] [employer] [facility] 03/06/2025 21:19:24
== END 2025-08-13 17:28 | disposition home or self-care (01) ==
PROVIDERS: Emergency Provider Emergency Medicine
DX: R51.9 Headache, unspecified (principal); R07.89 Other chest pain; I10 Essential (primary) hypertension; G83.9 Paralytic syndrome, unspecified; R94.31 Abnormal electrocardiogram [ECG] [EKG]; Z79.899 Other long term (current) drug therapy
CPT/HCPCS: 36415; 70450; 71045; 80048; 83735; 84484; 85025; 85610; 93005; 99283; J1920

== ENCOUNTER → 2025-08-13 12:07 | Outpatient (BNV) | payer OTHER, SELFPAY | PROVIDERS: Emergency Provider Emergency Medicine; Visit Provider Internal Medicine | DX: R94.31 Abnormal electrocardiogram [ECG] [EKG] (principal); I10 Essential (primary) hypertension | CPT/HCPCS: 93010 ==

== ENCOUNTER → 2025-08-13 13:02 | Outpatient (BNV) | payer OTHER, SELFPAY | PROVIDERS: Emergency Provider Emergency Medicine; Visit Provider Radiology Diagnostic Radiology | DX: I10 Essential (primary) hypertension (principal); R51.9 Headache, unspecified; R07.9 Chest pain, unspecified | CPT/HCPCS: 70450; 71045 ==